=== PATIENT | male | born 1995 | race Caucasian/White ===

== ENCOUNTER 2019-09-16 13:07 | Emergency (ER) | payer BC, MEDICAID ==
[2019-09-16] MEDS ORDERED: Cyclobenzaprine 10 MG Tab PO ONE (13:08)
[2019-09-16] MEDS ORDERED: traMADol 50 MG Tab PO ONE (13:08)
[2019-09-16] MEDS ORDERED: LORazepam 2 MG/ML SDV IVPUSH ONE (13:16)
[2019-09-16] MEDS ORDERED: Morphine 4 MG/ML VIAL IVPUSH ONE (13:16)
[2019-09-16] MEDS ORDERED: Iopamidol 755 Mg/ML 100 ML Bottle IV ONE (13:31)
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
[2019-09-16] MEDS ORDERED: HYDROmorphone 2 MG/ML SDV IVPUSH ONE (15:09)
== END 2019-09-16 15:38 | disposition home or self-care (01) ==
LOC: FB.ED 13:07
DX: S50.02XA Contusion of left elbow, initial encounter (principal); S30.811A Abrasion of abdominal wall, initial encounter; V86.56XA Driver of dirt bike or motor/cross bike injured in nontraffic accident, initial encounter
CPT/HCPCS: 36415; 71260; 74177; 80048; 80307; 85025; 96374; 96375; 99284; A9270; J1170; J2060; J2270; Q9967

== ENCOUNTER 2024-01-03 15:34 | Emergency (ER) | payer OTHER, MEDICAID ==
[2024-01-03] MEDS: Sodium Chloride 0.9% 1,000 ML IV ONE (15:47)
[2024-01-03 15:57] LABS: BASOPHILS ABSOLUTE AUTO 0.1 x10-3/uL (0.0-0.3); BASOPHILS PERCENT AUTO 0.8 % (0.3-3.8); EOSINOPHILS ABSOLUTE AUTO 0.2 x10-3/uL (0.0-0.6); EOSINOPHILS PERCENT AUTO 2.1 % (0.1-6.8); HEMATOCRIT 43.4 % (38.3-50.1); HEMOGLOBIN 14.7 g/dL (12.9-17.7); LYMPHOCYTES ABSOLUTE AUTO 2.4 x10-3/uL (0.5-4.5); MEAN CORPUSCULAR HEMOGLOBIN 28.8 pg (27.0-33.3); MEAN CORPUSCULAR VOLUME 84.7 fL (80.8-98.7); MEAN PLATELET VOLUME 6.9 fL (6.7-11.0); MONOCYTES ABSOLUTE AUTO 0.8 x10-3/uL (0.0-1.2); MONOCYTES PERCENT AUTO 9.9 % (5.5-15.2); NEUTROPHILS ABSOLUTE AUTO 4.4 x10-3/uL (1.7-6.9); NEUTROPHILS PERCENT AUTO 56.2 % (40.3-71.8); PLATELET COUNT,PLT 371 x10(3)uL (117-477); RED BLOOD CELL COUNT 5.13 x10(6)uL (3.90-5.90); RED CELL DISTRIBUTION WIDTH 13.4 % (12.4-15.0); WHITE BLOOD CELL COUNT,WBC 7.8 x10-3/uL (3.2-10.1)
[2024-01-03 16:01] LABS: BLOOD UREA NITROGEN,BUN 17 mg/dL (7-18); BUN/CREATININE RATIO 18.9 (9-20); CALCIUM 8.7 mg/dL (8.6-10.2); CARBON DIOXIDE,CO2 31 mmol/L (21-32); CHLORIDE,CL 105 mmol/L (100-110); CREATININE 0.9 mg/dL (0.70-1.30); ESTIMATED GFR 118 mL/min (>60); GLUCOSE RANDOM 96 mg/dL (80-116); POTASSIUM,K 3.7 mmol/L (3.5-5.3); SODIUM,NA 143 mmol/L (135-145)
[2024-01-03 16:04] LABS: INR 1.04 (1.00-1.24); PROTHROMBIN TIME 10.8 sec (9.0-11.1)
[2024-01-03 16:07] LABS: ALANINE AMINOTRANSFERASE,ALT 57 U/L (12-36); ALBUMIN 3.9 g/dL (3.5-5.2); ALKALINE PHOSPHATASE 110 IU/L (56-112); ASPARTATE AMNIOTRANSFERASE,AST 37 IU/L (5-25); BILIRUBIN TOTAL 0.5 mg/dL (0.1-1.3); PROTEIN TOTAL,TP 7.8 g/dL (6.0-8.0)
== END 2024-01-03 15:57 ==
LOC: FB.ED 15:34
DX: S82.842A Displaced bimalleolar fracture of left lower leg, initial encounter for closed fracture (principal); Z88.1 Allergy status to other antibiotic agents; R79.1 Abnormal coagulation profile; Z79.899 Other long term (current) drug therapy; V89.2XXA Person injured in unspecified motor-vehicle accident, traffic, initial encounter; Y92.410 Unspecified street and highway as the place of occurrence of the external cause
CPT/HCPCS: 36415; 71045; 72170; 73600; 80053; 80307; 83605; 83690; 85025; 85610; 99285; J7030